=== PATIENT | female | born 1990 | race Caucasian/White ===

== ENCOUNTER 2020-04-17 06:24 | Day surgery (SDC) | payer OTHER ==
[~2020-04-17] VITALS: Ht 154.9 cm; Wt 59.0 kg
[2020-04-17] MEDS ORDERED: LIDOCAINE 2% 100 MG/5 ML UJET TP ONE (07:40)
[2020-04-17] MEDS ORDERED: fentaNYL citrate 0.05 MG/ML VIAL ONE (07:40)
[2020-04-17] MEDS ORDERED: fentaNYL citrate 0.05 MG/ML VIAL IVP ONE (10:35)
== END 2020-04-17 09:50 | disposition home or self-care (01) ==
LOC: MDS 06:24 → MFCC 06:25 → MDS 09:50
PROVIDERS: ATTEND Internal Medicine Gastroenterology
DX: K62.5 Hemorrhage of anus and rectum (principal); K52.9 Noninfective gastroenteritis and colitis, unspecified; Z79.899 Other long term (current) drug therapy; Z11.59 Encounter for screening for other viral diseases
CPT/HCPCS: 45380; 81025; J3010; J7030; U0003